=== PATIENT | male | born 1930 | race Hispanic/Latino ===

== ENCOUNTER 2018-05-02 10:50 | Observation (INO) | payer MEDICARE, BC ==
[2018-05-02 12:26] LABS: #Basophils 0.1 thou/uL (0.0-0.2); #Eosinphils 0.4 thou/uL (0.0-0.7); #Lymphocytes 1.3 thou/uL (1.20-3.40); #Monocytes 0.6 thou/uL (0.11-0.59); #Neutrophils 4.4 thou/uL (1.40-6.50); %Basophils 1.3 % (0.0-1.0); %Eosinophils 5.2 % (0.0-10.0); %Lymphocytes 19.3 % (21.0-51.0); %Neutrophils 65.1 % (42.0-75.0); Hemoglobin 14.6 g/dL (14.0-18.0); Mean Corpuscular HGB CONC 33.1 g/dL (32.0-36.0); Mean Corpuscular Volume 93.7 fL (78.0-98.0); Mean Platelet Volume 7.9 fL (7.4-10.4); Platelet Count 168 thou/uL (130-400); RBC Distribution Width 13.6 % (11.5-14.5); Red Blood Cell (RBC) Count 4.69 mill/uL (4.70-6.10); White Blood Cell (WBC) Count 6.8 thou/uL (4.8-10.8)
[2018-05-02 12:40] LABS: ALT (SGPT) 44 U/L (8-55); AST (SGOT) 44 U/L (5-34); Albumin 3.3 g/dL (3.4-4.8); Alkaline Phosphatase 74 U/L (40-150); Anion Gap 15 mmol/L (10-20); BUN (Urea Nitrogen) 21 mg/dL (8.4-25.7); Calc. Creatinine Clearance 0 mL/min (70-130); Calcium 9.7 mg/dL (7.8-10.44); Carbon Dioxide 24 mmol/L (23-31); Chloride 106 mmol/L (98-107); Estimated GFR-MDRD 85; Globulin 3.4 g/dL (2.4-3.5); Glucose 173 mg/dL (83-110); Potassium 3.6 mmol/L (3.5-5.1); Protein, Total 6.7 g/dL (5.8-8.1); Sodium 141 mmol/L (136-145)
[2018-05-02 12:40] LABS: Bilirubin Moderate (Negative); Blood, Urine Negative (Negative); Clarity CLEAR (Clear); Glucose, Urine (Dipstick) 100 mg/dL (Negative); Leukocyte Small (Negative); Nitrite Negative (Negative); Protein, Urine (Dipstick) Trace mg/dL (Neg-Trace); Specific Gravity, Urine 1.038 (1.002-1.036); pH, Urine 5.5 (5.0-9.0)
[2018-05-02 12:41] LABS: RBC/HPF 0-3 HPF (0-3); WBC/HPF 0-3 HPF (0-3)
[2018-05-02 12:50] LABS: Bacteria/HPF 1+ HPF (None Seen); Crystals/HPF 1+ CA OXALATE HPF (Negative); Hyaline Casts/LPF 0-3 HYALINE CAST LPF (0-3 Hyaline); Renal Epithelial None Seen HPF (0-3); Transitional Epithelial 0-3 HPF (0-3)
--- NOTE | 2018-05-02 13:05 | RAD ---
CHEST 1 VIEW: Date: 05/02/18 HISTORY: Chest pain. COMPARISON: None. FINDINGS: There are chronic interstitial markings throughout the lungs. There is abnormal mass-like density in the right upper lobe, likely chronic fibrosis. Cardiac silhouette is upper limits of normal. Calcifie d AP window lymph node. IMPRESSION: 1. Concern for possible right upper lobe mass versus pneumonia. 2. Likely pulmonary fibrosis. POS: [facility]
--- NOTE | 2018-05-02 14:23 | CT ---
CT BRAIN WITHO CONTRAST: Date: 05/02/18 HISTORY: Altered mental status and agitation. COMPARISON: None. 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 No acute hemorrhage. No large volume infarction. No midline shift or mass effect. Mild bilateral maxillary sinusitis. Calvarium is intact. Mastoids are well aerated. IMPRESSION: No acute intracranial abnormality. POS: [facility]
[2018-05-02] MEDS ORDERED: Acetaminophen 325 MG TAB PO PRN (16:00)
[2018-05-02] MEDS ORDERED: Ondansetron PF 4 MG/2 ML Vial IVP PRN ×2 (16:00→18:11)
[2018-05-02] MEDS ORDERED: Ondansetron ODT 4 MG TAB SL PRN (16:00)
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
[2018-05-02] MEDS ORDERED: Haloperidol Lactate 5 MG/ML VIAL IM PRN (18:11)
[2018-05-02] MEDS ORDERED: Docusate 100 MG CAP PO PRN (20:00)
[2018-05-02] MEDS ORDERED: Polyethylene Glycol 3350 17 GM Packet PO PRN (20:00)
[2018-05-02] MEDS: Enoxaparin Sodium 60 MG/0.6 ML SYRINGE SC SCH (20:02)
[2018-05-02] MEDS: Lactated Ringer's 1,000 ML IV SCH (20:02)
[2018-05-02] MEDS: Haloperidol Lactate 5 MG/ML VIAL SLOW IVP PRN (20:50)
[2018-05-03] MEDS: Haloperidol Lactate 5 MG/ML VIAL SLOW IVP PRN ×2 (00:13→06:11)
[2018-05-03] MEDS: Lactated Ringer's 1,000 ML IV SCH ×4 (00:13→20:03)
--- NOTE | 2018-05-03 06:11 | PDOC.FM ---
- Subjective Subjective: NAEO. Patient easily aroused and oriented to person and place on exam this AM. Did not know the date and could not remember his birthday. Denied any pain, cough, SOB, or fever/chills. - Objective MAR Reviewed: Yes Vital Signs & Weight: Vital Signs (12 hours) Temp Pulse Resp BP Pulse Ox 05/03/18 02:00 97.5 F L 86 20 115/71 95 Weight Weight 53.524 kg Result Diagrams: 05/03/18 07:49 05/03/18 07:49 Phys Exam - Physical Examination Constitutional: NAD HEENT: moist MMs Respiratory: no wheezing, no rales, no rhonchi, clear to auscultation bilateral Cardiovascular: RRR, no significant murmur Gastrointestinal: soft, positive bowel sounds endorsed TTP in LLQ but no guarding or rebound tenderness Musculoskeletal: no edema, pulses present Neurological: non-focal, moves all 4 limbs Psychiatric: normal affect Deviation from normal: Oriented to person and place only. Repeatedly asked where his close were & stated he wanted to see his mom and dad. Skin: no rash Dx/Plan (1) Altered mental status Code(s): R41.82 - ALTERED MENTAL STATUS, UNSPECIFIED Status: Acute (2) History of DVT (deep vein thrombosis) Code(s): Z86.718 - PERSONAL HISTORY OF OTHER VENOUS THROMBOSIS AND EMBOLISM Status: Chronic (3) History of pulmonary embolus (PE) Code(s): Z86.711 - PERSONAL HISTORY OF PULMONARY EMBOLISM Status: Chronic (4) Dementia Code(s): F03.90 - UNSPECIFIED DEMENTIA WITHOUT BEHAVIORAL DISTURBANCE Status: Chronic (5) HFrEF (heart failure with reduced ejection fraction) Code(s): I50.20 - UNSPECIFIED SYSTOLIC (CONGESTIVE) HEART FAILURE Status: Acute - Plan Plan: Patient is an 88YO gentleman recently discharged after being diagnosed with a R-sided PE and HFrEF who was brought in by his children 2/2 worsening mental status with increased aggression and agitation over the last week. Acute encephalopathy of unknown origin: - Patient's mentation is markedly improved from what was reported on presentation. Oriented to person and place on exam this AM. Did display signs of dementia asking repeatedly where his clothes were and asking to see his parents. - Regarding the source, still unsure but is most likely just natural progression of dementia. Do have a urine culture pending though and will consider checking for more chronic infectious etiologies such as HIV, Hep C, and Syphilis today. Will also consider checking vitamin B12 as well as could partially be 2/2 malnutrition and poor PO intake. However, on last admission abd imaging showed a possible small bowel mass/lymphoma which could also mean malignancy is the etiology of his weight loss and behavior. - Will order PRN IM & IV Haldol for agitation. - Will order a regular diet as nurse reported he passed a bedside swallow study. Dementia: - Will consider further workup as described above and treat with PRN haldol for agitation and aggression. - Will spiritual counselor family on reorienting and making sure patient stays awake during the day and sleeps at night. - Will consider initiating antipsychotic therapy QD with RUTH Haldol or Geodon to prevent aggression and promote sleep at bedtime. - CM consult placed for CM to assist family with placement as is now unable to care for him on her own anymore. 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 Will consider revisiting if no other cause for acute mental status changes is identified. Moderate volume depletion: - Patient dry appearing with ketonuria on presentation. - Will continue IVF resuscitation but decrease to maintenance rate LR @ 100mL/ hr and see how patient eats and drinks today. HFrEF: - EF of 20-30% on last admission. - Patient currently not on any medications as his BP cannot tolerate antihypertensives per the family. Did not tolerate a life vest either. - Will continue to monitor and check QD weights and strict I&Os. h/o PE: - Aware, diagnosed at last admission. Will start on SQ therapeutic lovenox for tonight and resume home Eliquis dose once cleared to take PO. h/o DVT: - Aware, see above for PE. Physical deconditioning: - Aware, per family patient is afraid to walk so therefore does not get around like he used to. - PT & OT consult placed. Pulmonary emphysema - Aware, stable. Chronic interstitial lung disease - Aware, stable. Chronic constipation - Will order PRN docusate & miralax. Addendum - Attending - Attending Attestation Date/Time: 05/03/18 6726 I personally evaluated the patient and discussed the management with Dr. James. I agree with the History, Examination, Assessment and Plan documented above with any addition or exceptions noted below. Patient here with worsening mentation and aggression. We have been unable to determine medical cause as most have been excluded. He is receiving fluid hydration but not much else. This could be related to possible malignancy that was discussed with family during previous hospitalization but they deferred workup at that time. Will see if they are interested in pursuing at this time. This morning, he answers questions and is aware of where he is, but does have some paranoia as well as inappropriateness in his responses. Will continue to have Haldol available if aggression continues. Work to re-orient his sleep/wake cycle today and await cx results. Placement may come into play beginning tomorrow.
[2018-05-03 08:20] LABS: Anion Gap 15 mmol/L (10-20); BUN (Urea Nitrogen) 14 mg/dL (8.4-25.7); Calc. Creatinine Clearance 57 mL/min (70-130); Calcium 9.1 mg/dL (7.8-10.44); Carbon Dioxide 24 mmol/L (23-31); Chloride 106 mmol/L (98-107); Estimated GFR-MDRD Greater than 90; Glucose 117 mg/dL (83-110); Potassium 3.6 mmol/L (3.5-5.1); Sodium 141 mmol/L (136-145)
[2018-05-03 08:43] LABS: Band 2 % (5-11); Eosinophils 5 % (0-10); Hemoglobin 13.9 g/dL (14.0-18.0); Lymphocytes 21 % (21-51); MDiff Complete? YES; Mean Corpuscular HGB CONC 32.4 g/dL (32.0-36.0); Mean Corpuscular Hemoglobin 30.6 pg (27.0-31.0); Mean Corpuscular Volume 94.6 fL (78.0-98.0); Mean Platelet Volume 9.5 fL (7.4-10.4); Monocytes 4 % (0-10); Neutrophil 68 % (42-75); Platelet Count 162 thou/uL (130-400); RBC Distribution Width 13.6 % (11.5-14.5); Red Blood Cell (RBC) Count 4.54 mill/uL (4.70-6.10)
[2018-05-03] MEDS: Enoxaparin Sodium 60 MG/0.6 ML SYRINGE SC SCH (09:50)
[2018-05-03] MEDS: Acetaminophen 325 MG TAB PO PRN (15:36)
[2018-05-03] MEDS: Apixaban 5 MG TAB PO SCH (20:00)
[2018-05-04] MEDS: Lactated Ringer's 1,000 ML IV SCH ×3 (05:22→19:17)
--- NOTE | 2018-05-04 06:20 | PDOC.FM ---
- Subjective Subjective: Mr. Pina is resting comfortably in bed. He is AOx3 and not agitated. family in the room report his mentation and aggression have improved. - Objective Vital Signs & Weight: Vital Signs (12 hours) Temp Pulse Resp BP BP Pulse Ox 05/04/18 04:15 97.3 F L 71 18 119/73 97 05/03/18 23:50 98 F 95 18 121/75 97 05/03/18 19:59 97.4 F L 92 18 136/80 96 Weight Weight 53.524 kg I&O: 05/02/18 05/03/18 05/04/18 06:59 06:59 06:59 Intake Total 1250 1425 Output Total 440 Balance 1250 985 Result Diagrams: 05/03/18 07:49 05/03/18 07:49 Phys Exam - Physical Examination Constitutional: NAD HEENT: moist MMs Neck: no nodes, no JVD Respiratory: clear to auscultation bilateral Cardiovascular: RRR, no significant murmur Gastrointestinal: soft, non-tender, no distention Musculoskeletal: no edema Neurological: moves all 4 limbs Lymphatic: no nodes Psychiatric: normal affect, A&O x 3 Skin: no rash Dx/Plan (1) Altered mental status Code(s): R41.82 - ALTERED MENTAL STATUS, UNSPECIFIED Status: Acute (2) HFrEF (heart failure with reduced ejection fraction) Code(s): I50.20 - UNSPECIFIED SYSTOLIC (CONGESTIVE) HEART FAILURE Status: Acute (3) Dementia Code(s): F03.90 - UNSPECIFIED DEMENTIA WITHOUT BEHAVIORAL DISTURBANCE Status: Chronic (4) History of DVT (deep vein thrombosis) Code(s): Z86.718 - PERSONAL HISTORY OF OTHER VENOUS THROMBOSIS AND EMBOLISM Status: Chronic (5) History of pulmonary embolus (PE) Code(s): Z86.711 - PERSONAL HISTORY OF PULMONARY EMBOLISM Status: Chronic - Plan Plan: Acute encephalopathy of unknown origin - Patient's mentation is markedly improved from what was reported on presentation. - Regarding the source, still unsure but is most likely just natural progression of dementia. Do have a urine culture pending though and will consider checking for more chronic infectious etiologies such as HIV, Hep C, and Syphilis today. Will also consider checking vitamin B12 as well as could partially be 2/2 malnutrition and poor PO intake.. - PRN IM & IV Haldol for agitation. - regular diet as nurse reported he passed a bedside swallow study. Dementia - PRN haldol for agitation and aggression. - domestic violence counselor family on reorienting and making sure patient stays awake during the day and sleeps at night. - consider initiating antipsychotic therapy QD with RUTH Haldol or Geodon to prevent aggression and promote sleep at bedtime. - CM consult placed for CM to assist family with placement as is now unable to care for him on her own anymore. 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 Will consider revisiting if no other cause for acute mental status changes is identified. Moderate volume depletion - Patient dry appearing with ketonuria on presentation. - LR @ 100mL/hr HFrEF - EF of 20-30% on last admission. - Patient currently not on any medications as his BP cannot tolerate antihypertensives per the family. Did not tolerate a life vest either. - Will continue to monitor and check QD weights and strict I&Os. h/o PE - Aware, diagnosed at last admission. resume home Eliquis h/o DVT - Aware, see above for PE. Physical deconditioning - Aware, per family patient is afraid to walk so therefore does not get around like he used to. - PT & OT consult placed. Pulmonary emphysema - Aware, stable. Chronic interstitial lung disease - Aware, stable. Chronic constipation - Will order PRN docusate & miralax. Code: full, consider confirming with family ppx: eliquis Dispo: further evaluate for 2/2 causes of acute mental status change, consider placement options Addendum - Attending - Attending Attestation Date/Time: 05/04/18 3810 I personally evaluated the patient and discussed the management with Dr. Hunter. I agree with the History, Examination, Assessment and Plan documented above with any addition or exceptions noted below. The patient's agitation is better. Adding additional labs to further workup dementia, tsh, b12, rpr. Looking for oil heaterman placement for patient.
[2018-05-04] MEDS: Apixaban 5 MG TAB PO SCH ×2 (08:30→20:23)
[2018-05-04 18:19] LABS: Syphilis Antibody Nonreactive (Nonreactive); Syphilis Antibody Index 0.15 S/CO (<1.00 Non-Reactive)
[2018-05-04 18:37] LABS: Vitamin B12 Greater than 2000 pg/mL (211-911)
[2018-05-05] MEDS: Lactated Ringer's 1,000 ML IV SCH (01:10)
[2018-05-05] MEDS ORDERED: Lactated Ringer's 1,000 ML IV SCH (06:41)
--- NOTE | 2018-05-05 06:48 | PDOC.FM ---
- Subjective Subjective: Mr. Pina is resting comfortably in bed with his family at bedside. The report he has been calm but has had visual and auditory hallucinations. - Objective Vital Signs & Weight: Vital Signs (12 hours) Temp Pulse Resp BP BP Pulse Ox 05/05/18 04:00 97.6 F 90 16 105/67 93 L 05/05/18 00:00 97.4 F L 92 16 128/86 97 05/04/18 20:00 97.4 F L 94 16 114/67 95 Weight Weight 54.885 kg I&O: 05/03/18 05/04/18 05/05/18 06:59 06:59 06:59 Intake Total 1250 2825 2500 Output Total 440 500 Balance 1250 2385 1999 Result Diagrams: 05/03/18 07:49 05/03/18 07:49 Phys Exam - Physical Examination Constitutional: NAD HEENT: moist MMs, oral pharynx no lesions Neck: no JVD Gastrointestinal: non-tender Musculoskeletal: no edema Neurological: moves all 4 limbs Skin: no rash Dx/Plan (1) Altered mental status Code(s): R41.82 - ALTERED MENTAL STATUS, UNSPECIFIED Status: Acute (2) HFrEF (heart failure with reduced ejection fraction) Code(s): I50.20 - UNSPECIFIED SYSTOLIC (CONGESTIVE) HEART FAILURE Status: Acute (3) Dementia Code(s): F03.90 - UNSPECIFIED DEMENTIA WITHOUT BEHAVIORAL DISTURBANCE Status: Chronic (4) History of DVT (deep vein thrombosis) Code(s): Z86.718 - PERSONAL HISTORY OF OTHER VENOUS THROMBOSIS AND EMBOLISM Status: Chronic (5) History of pulmonary embolus (PE) Code(s): Z86.711 - PERSONAL HISTORY OF PULMONARY EMBOLISM Status: Chronic - Plan Plan: Acute encephalopathy 2/2 vascular dementia - Patient's mentation is markedly improved from what was reported on presentation. - most likely progression of dementia/disturbance of sleep/wake cycle - urine culture pending. RPR, vitamin B12, folate, TSH wnl. - PRN IM & IV Haldol for agitation. - regular diet as nurse reported he passed a bedside swallow study. add nutritional shakes - CM consult placed for CM to assist family with placement as is now unable to care for him on her own anymore. 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 Moderate volume depletion, resolved - Patient dry appearing with ketonuria on presentation. - LR @ 50mL/hr HFrEF - EF of 20-30% on last admission, +2000 mL yesterday - Patient currently not on any medications as his BP cannot tolerate antihypertensives per the family. Did not tolerate a life vest either. - Will continue to monitor and check QD weights and strict I&Os. h/o PE - Aware, diagnosed at last admission. resume home Eliquis h/o DVT - Aware, see above for PE. Physical deconditioning - Aware, per family patient is afraid to walk so therefore does not get around like he used to. - PT & OT consult placed. Pulmonary emphysema - Aware, stable. Chronic interstitial lung disease - Aware, stable. Chronic constipation - Will order PRN docusate & miralax. Code: full, consider confirming with family ppx: eliquis Dispo: monitor PO intake, DC pending placement Addendum - Attending - Attending Attestation Date/Time: 05/05/18 6895 I personally evaluated the patient and discussed the management with Dr. Hunter. I agree with the History, Examination, Assessment and Plan documented above with any addition or exceptions noted below. Lab work has been stable. Awaiting [facility] placement.
[2018-05-05] MEDS: Apixaban 5 MG TAB PO SCH ×2 (09:36→21:22)
--- NOTE | 2018-05-05 14:40 | PDOC.EVN ---
Event Note - Event Note Event Note: MMSE performed, score of 14 indicating severe cognitive impairment. consistent with clinical picture and reports by family. recommend placement at care facility, case management consulted. appreciate recommendations and options. PC consulted and met with family, established MPOA and DNR status with help of pt and family. agree with decision.
--- NOTE | 2018-05-06 06:28 | PDOC.FM ---
- Subjective Subjective: Mr. Pina is resting comfortably in bed. no events overnight, his son reports he is calm but still describing things that are not there and is not sure of where he is. - Objective Vital Signs & Weight: Vital Signs (12 hours) Temp Pulse Resp BP Pulse Ox 05/06/18 04:00 97.6 F 96 16 110/70 93 L 05/06/18 00:00 97.7 F 93 16 111/75 96 05/05/18 20:00 97.8 F 100 16 114/79 94 L Weight Weight 53.977 kg I&O: 05/04/18 05/05/18 05/06/18 06:59 06:59 06:59 Intake Total 2825 2500 670 Output Total 440 500 400 Balance 2385 1999 270 Result Diagrams: 05/03/18 07:49 05/03/18 07:49 Phys Exam - Physical Examination Constitutional: NAD HEENT: moist MMs, oral pharynx no lesions Respiratory: clear to auscultation bilateral Cardiovascular: RRR, no significant murmur Gastrointestinal: soft, non-tender, no distention Musculoskeletal: no edema Neurological: moves all 4 limbs Skin: no rash Dx/Plan (1) Altered mental status Code(s): R41.82 - ALTERED MENTAL STATUS, UNSPECIFIED Status: Acute (2) HFrEF (heart failure with reduced ejection fraction) Code(s): I50.20 - UNSPECIFIED SYSTOLIC (CONGESTIVE) HEART FAILURE Status: Acute (3) Dementia Code(s): F03.90 - UNSPECIFIED DEMENTIA WITHOUT BEHAVIORAL DISTURBANCE Status: Chronic (4) History of DVT (deep vein thrombosis) Code(s): Z86.718 - PERSONAL HISTORY OF OTHER VENOUS THROMBOSIS AND EMBOLISM Status: Chronic (5) History of pulmonary embolus (PE) Code(s): Z86.711 - PERSONAL HISTORY OF PULMONARY EMBOLISM Status: Chronic - Plan Plan: Acute encephalopathy 2/2 vascular dementia - Patient's mentation is markedly improved from what was reported on presentation. - most likely progression of dementia/disturbance of sleep/wake cycle - urine culture no growth. RPR, vitamin B12, folate, TSH wnl. - PRN IM & IV Haldol for agitation. - regular diet as nurse reported he passed a bedside swallow study. add nutritional shakes - Pt has requested placement at 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 Moderate volume depletion, resolved - DC IVF, encourage PO intake HFrEF - EF of 20-30% on last admission, +2000 mL yesterday - Patient currently not on any medications as his BP cannot tolerate antihypertensives per the family. Did not tolerate a life vest either. - Will continue to monitor and check QD weights and strict I&Os. h/o PE - Aware, diagnosed at last admission. resume home Eliquis h/o DVT - Aware, see above for PE. Physical deconditioning - Aware, per family patient is afraid to walk so therefore does not get around like he used to. - PT & OT consult placed. Pulmonary emphysema - Aware, stable. Chronic interstitial lung disease - Aware, stable. Chronic constipation - Will order PRN docusate & miralax. Code: DNR ppx: eliquis Dispo: monitor PO intake, DC pending placement Addendum - Attending - Attending Attestation Date/Time: 05/06/18 4822 I personally evaluated the patient and discussed the management with Dr. Hunter. I agree with the History, Examination, Assessment and Plan documented above with any addition or exceptions noted below. The patient is stable. We are still waiting on placement.
[2018-05-06] MEDS: Apixaban 5 MG TAB PO SCH ×3 (08:46→20:55)
[2018-05-06] MEDS: Acetaminophen 325 MG TAB PO PRN (20:56)
--- NOTE | 2018-05-07 06:45 | PDOC.FM ---
- Subjective Subjective: Mr. Pina is resting comfortably in bed with his son at bedside, he reports no events overnight and that his father has been very fatigued, eating better. - Objective Vital Signs & Weight: Vital Signs (12 hours) Temp Pulse Resp BP BP Pulse Ox 05/07/18 04:00 97.6 F 94 16 130/75 96 05/07/18 00:00 97.7 F 88 16 103/69 95 05/06/18 20:00 98.1 F 91 18 104/65 96 Weight Weight 55.565 kg I&O: 05/05/18 05/06/18 05/07/18 06:59 06:59 06:59 Intake Total 2500 670 1010 Output Total 500 400 Balance 1999 270 1010 Result Diagrams: 05/03/18 07:49 05/03/18 07:49 Phys Exam - Physical Examination Constitutional: NAD HEENT: moist MMs Neck: no JVD Gastrointestinal: non-tender Musculoskeletal: no edema Neurological: moves all 4 limbs Skin: no rash, normal turgor Dx/Plan (1) Altered mental status Code(s): R41.82 - ALTERED MENTAL STATUS, UNSPECIFIED Status: Acute (2) HFrEF (heart failure with reduced ejection fraction) Code(s): I50.20 - UNSPECIFIED SYSTOLIC (CONGESTIVE) HEART FAILURE Status: Acute (3) Dementia Code(s): F03.90 - UNSPECIFIED DEMENTIA WITHOUT BEHAVIORAL DISTURBANCE Status: Chronic (4) History of DVT (deep vein thrombosis) Code(s): Z86.718 - PERSONAL HISTORY OF OTHER VENOUS THROMBOSIS AND EMBOLISM Status: Chronic (5) History of pulmonary embolus (PE) Code(s): Z86.711 - PERSONAL HISTORY OF PULMONARY EMBOLISM Status: Chronic - Plan Plan: Acute encephalopathy 2/2 vascular dementia - Patient's mentation is markedly improved from what was reported on presentation. - most likely progression of dementia/disturbance of sleep/wake cycle - urine culture no growth. RPR, vitamin B12, folate, TSH wnl. - PRN IM & IV Haldol for agitation. - regular diet as nurse reported he passed a bedside swallow study. add nutritional shakes - Pt has requested placement at 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 Moderate volume depletion, resolved - DC IVF, encourage PO intake HFrEF - EF of 20-30% on last admission - Patient currently not on any medications as his BP cannot tolerate antihypertensives per the family. Did not tolerate a life vest either. - Will continue to monitor and check QD weights and strict I&Os. h/o PE - Aware, diagnosed at last admission. resume home Eliquis h/o DVT - Aware, see above for PE. Physical deconditioning - Aware, per family patient is afraid to walk so therefore does not get around like he used to. - PT & OT consult placed. Pulmonary emphysema - Aware, stable. Chronic interstitial lung disease - Aware, stable. Chronic constipation - Will order PRN docusate & miralax. Code: DNR ppx: eliquis Dispo: monitor PO intake, DC pending placement Addendum - Attending - Attending Attestation Date/Time: 05/07/18 7160 I personally evaluated the patient and discussed the management with Dr. Hunter. I agree with the History, Examination, Assessment and Plan documented above with any addition or exceptions noted below. The patient has been accepted to [facility] and will discharge today. He is more clear today and states he is feeling better.
[2018-05-07] MEDS: Apixaban 5 MG TAB PO SCH (10:05)
[2018-05-07 12:24] VITALS: BP 113/59; TEMP 97.5
--- NOTE | 2018-05-09 11:23 | DIS ---
DATE OF ADMISSION: 05/02/2018 DATE OF DISCHARGE: 05/07/2018 RESIDENT: Seferino Hunter DO. ADMITTING ATTENDING: Deangelo Morgan MD. DISCHARGE ATTENDING: Akilah Proctor MD. CONSULTS: None. PROCEDURES PERFORMED: None. IMAGING: Ryan CT, impression; no acute intracranial abnormality. PRIMARY DIAGNOSIS: Acute encephalopathy secondary to vascular dementia. SECONDARY DIAGNOSES: 1. 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 2. Moderate volume depletion, resolved. 3. Heart failure with reduced ejection fraction. 4. History of pulmonary embolus. 5. History of deep venous thrombosis. 6. Physical deconditioning. 7. Pulmonary emphysema. 8. Chronic interstitial lung disease. 9. Chronic constipation. DISCHARGE MEDICATIONS: 1. Eliquis 5 mg p.o. b.i.d. 2. Colace 100 mg p.o. daily p.r.n. DISCONTINUED MEDICATIONS: None. HISTORY OF PRESENT ILLNESS AND HOSPITAL COURSE: Mr. Pina is an 88-year-old male, presented with a past medical history significant for DVTs, PE, and heart failure to the ED brought by his children for progressively worsening altered mental status, in which he was aggressive to his that morning, who reported history of declining mental status over the past few years, but never acutely aggressive. The patient was unable to answer questions at that time. Full altered mental status workup was done. No signs for infection, metabolic derangement, or intracranial abnormalities were noted. Additional workup was done throughout hospital stay for other possible causes of dementia, all negative. Most likely diagnosis is worsening of known vascular dementia. The patient's mentation did improve during hospital stay. Mini-mental status exam was performed and scored as a 14 indicating severe cognitive impairment. The decision was made along with family members that it would be better for the patient to be in a residential facility, so arrangements were made with Case Management to have the patient transferred to residential facility at this time. DISPOSITION: Stable. DISCHARGE INSTRUCTIONS: LOCATION: [facility] facility. DIET: Regular. ACTIVITY: As tolerated. FOLLOWUP: Follow up with PCP, Dr. Klein in the next 7 days. Job ID: [id number] MTDD
--- NOTE | 2018-05-09 20:30 | EKG ---
Test Reason : Blood Pressure : / mmHG Vent. Rate : 079 BPM Atrial Rate : 079 BPM P-R Int : 150 ms QRS Dur : 120 ms QT Int : 370 ms P-R-T Axes : 031 -34 155 degrees QTc Int : 424 ms Sinus rhythm with occasional Premature ventricular complexes Left axis deviation Inferior infarct , age undetermined Cannot rule out Anterior infarct , age undetermined T wave abnormality, consider lateral ischemia Abnormal ECG Confirmed by MARY JANE TUCKER, CAN ([id number]), newspaper editor managing SHAD BARRERA ([id number]) on 05/09/2018 8:29:59 PM Referred By: Confirmed By:CAN HINTON MD
== END 2018-05-07 15:15 ==
LOC: ERS 10:50 → T4-B 16:07
PROVIDERS: ADMIT Student in an Organized Health Care Education/Training Program; ATTEND Student in an Organized Health Care Education/Training Program
DX: F01.50 Vascular dementia, unspecified severity, without behavioral disturbance, psychotic disturbance, mood disturbance, and anxiety (principal); G93.49 Other encephalopathy; K59.09 Other constipation; J43.9 Emphysema, unspecified; E86.9 Volume depletion, unspecified; I50.30 Unspecified diastolic (congestive) heart failure; Z87.891 Personal history of nicotine dependence; Z86.73 Personal history of transient ischemic attack (TIA), and cerebral infarction without residual deficits; Z86.711 Personal history of pulmonary embolism; Z88.0 Allergy status to penicillin
CPT/HCPCS: 51701; 70450; 71045; 80048; 82607; 82746; 84134; 84145; 85025; 86780; 87086; 93005; 96361 ×4; 96372; 96374; 96376; 97110; 97116; 97139; 97530 ×2; 99285; G0378 ×3; 36415; 80053; 81003; 81015; 84443; J1630; J1650